=== PATIENT | male | born 1985 | race Caucasian/White ===

== ENCOUNTER 2017-11-11 12:33 | Emergency (ER) | payer OTHER | END 2017-11-11 13:25 | disposition home or self-care (01) | LOC: ERS 12:33 | DX: K08.89 Other specified disorders of teeth and supporting structures (principal); I10 Essential (primary) hypertension; F17.210 Nicotine dependence, cigarettes, uncomplicated | CPT/HCPCS: 99282 ==

== ENCOUNTER 2022-03-16 17:52 | Emergency (ER) | payer OTHER ==
[2022-03-16] MEDS ORDERED: Ketorolac Tromethamine 30 MG/ML VIAL ONE (18:08)
[2022-03-16] MEDS ORDERED: Ondansetron PF 4 MG/2 ML Vial ONE (18:08)
[2022-03-16] MEDS ORDERED: Morphine 4 MG/ML VIAL ONE (18:08)
[2022-03-16] MEDS ORDERED: Boostrix 0.5 ML (Tdap) VIAL (>/=7 yrs of age) ONE (18:08)
[2022-03-16] MEDS ORDERED: Lidocaine 1% PF 5 ML VIAL ONE (18:19)
== END 2022-03-16 19:54 | disposition home or self-care (01) ==
LOC: ERS 17:52
DX: S86.022A Laceration of left Achilles tendon, initial encounter (principal); F17.220 Nicotine dependence, chewing tobacco, uncomplicated; F17.210 Nicotine dependence, cigarettes, uncomplicated; I10 Essential (primary) hypertension; W29.3XXA Contact with powered garden and outdoor hand tools and machinery, initial encounter; Z23 Encounter for immunization
CPT/HCPCS: 12002; 90471; 90715; 96374; 96375; J1885; J2270; J2405

== ENCOUNTER 2022-07-31 15:51 | Emergency (ER) | payer OTHER | END 2022-07-31 16:52 | disposition home or self-care (01) | LOC: ERS 15:51 | DX: M79.605 Pain in left leg (principal); I10 Essential (primary) hypertension; F17.220 Nicotine dependence, chewing tobacco, uncomplicated | CPT/HCPCS: 99282 ==

== ENCOUNTER 2023-12-14 12:03 | Outpatient (CLI) | payer OTHER | END 2023-12-14 12:04 | disposition home or self-care (01) | LOC: BICMRI 12:03 | PROVIDERS: ATTEND Pain Medicine Interventional Pain Medicine | DX: M47.26 Other spondylosis with radiculopathy, lumbar region (principal); M47.815 Spondylosis without myelopathy or radiculopathy, thoracolumbar region; M47.817 Spondylosis without myelopathy or radiculopathy, lumbosacral region | CPT/HCPCS: 72148 ==